=== PATIENT | male | born 1985 | race Caucasian/White ===

== ENCOUNTER → 2022-02-16 08:40 | Outpatient (CLI) | payer OTHER, MEDICAID, SELFPAY ==
[2022-02-16 11:18] LABS: Urine N gonorrhoeae NOT DETECTED
[2022-02-16 11:19] LABS: Urine Chlamydia DETECTED
[2022-02-16 11:40] LABS: Hepatitis B Surface Antigen NEGATIVE s/c (NEGATIVE)
[2022-02-16 11:57] LABS: HIV 1 & 2 Ab/Ag 4th Gen Combo NEGATIVE (NEGATIVE); Hep C Virus Ab w/Reflex Quant NEGATIVE s/c (NEGATIVE)
[2022-02-17 07:26] LABS: RPR Screen Non Reactive (Non Reactive)
[2022-02-17 09:26] LABS: HSV 2 IGG AB < 0.91 index (0.00-0.90); HSV1IGG < 0.91 index (0.00-0.90)
[2022-02-20 17:45] LABS: HSV I/II IgM <0.91 Ratio (0.00-0.90)
== END ==
PROVIDERS: Referring Provider Nurse Practitioner Family; Visit Provider Nurse Practitioner Family
DX: Z20.2 Contact with and (suspected) exposure to infections with a predominantly sexual mode of transmission (principal)
CPT/HCPCS: 36415; 86592; 86694; 86695; 86696; 86803; 87340; 87389; 87491; 87591

== ENCOUNTER 2022-05-24 16:45 | Emergency (ER) | payer OTHER, MEDICAID, SELFPAY ==
[2022-05-24 17:15] VITALS: BP 135/86; PULSE 58; RESP 18; TEMP 36.6; O2SAT 98; BMI 27.1
[2022-05-24] MEDS: PROPARACAINE 0.5% OPHTH SOL 1 DROPS EYE-LEFT (17:58)
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
[2022-05-24] MEDS: ERYTHROMYCIN OPHTH 1 GM OINT 1 APPLIC EYE-LEFT (19:07)
[2022-05-24] MEDS: FLUORESCEIN 1 MG STRIP EYE-BOTH (19:07)
== END 2022-05-24 19:14 | disposition home or self-care (01) ==
PROVIDERS: Emergency Provider Emergency Medicine
DX: S05.02XA Injury of conjunctiva and corneal abrasion without foreign body, left eye, initial encounter (principal)
CPT/HCPCS: 99282

== ENCOUNTER → 2025-02-10 11:17 | Outpatient (CLI) | payer OTHER, SELFPAY ==
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
== END ==
PROVIDERS: Referring Provider Physician Assistant; Visit Provider Physician Assistant
DX: S63.502A Unspecified sprain of left wrist, initial encounter (principal); X58.XXXA Exposure to other specified factors, initial encounter
CPT/HCPCS: 73110